=== PATIENT | female | born 1965 | race Caucasian/White ===

== ENCOUNTER 2018-09-29 16:03 | Emergency (ER) | payer OTHER ==
--- NOTE | 2018-09-29 17:30 | UC ---
Lower Extremity/Ankle HPI - HPI Summary HPI Summary: 53-year-old female presents with complaints of right foot pain. States she has had some intermittent pain of both feet since May 2018 however over the last 3-4 days she's had persistent pain in the right forefoot. Describes pain as a mild a ache that worsens with weightbearing and ambulation. Has taken ibuprofen with improvement in the pain. Denies injury, erythema, ecchymosis, edema, numbness, or tingling. 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 Pneumothorax ~ 1989. APPENDIX 09/01/13. lumpectomy, left mastectomy 2016 - Family History Known Family History: Positive: Non-Contributory - Social History Occupation: Employed Full-time Lives: With Family Alcohol Use: None Substance Use Type: None Smoking Status (MU): Heavy Every Day Tobacco Smoker Type: Cigarettes Amount Used/How Often: 1 1/2 ppd Length of Time of Smoking/Using Tobacco: 32 years Have You Smoked in the Last Year: Yes Household Exposure Type: Cigarettes - Immunization History Most Recent Influenza Vaccination: unknown Most Recent Tetanus Shot: 2011 Most Recent Pneumonia Vaccination: never Review of Systems All Other Systems Reviewed And Are Negative: Yes Physical Exam - Summary Physical Exam Summary: GENERAL APPEARANCE: Well developed, well nourished, alert and cooperative, and appears to be in no acute distress. CARDIAC: Normal S1 and S2. No S3, S4 or murmurs. Rhythm is regular. There is no peripheral edema, cyanosis or pallor. Extremities are warm and well perfused. Capillary refill is less than 2 seconds. Peripheral pulses intact. LUNGS: Clear to auscultation without rales, rhonchi, wheezing or diminished breath sounds. ABDOMEN: Positive bowel sounds. Soft, nondistended, nontender. No guarding or rebound. No masses or hepatosplenomegally. MUSKULOSKELETAL: ROM intact to all extremities. No joint erythema or tenderness. Normal muscular development. Normal gait. EXTREMITIES: Tenderness of the right mid forefoot without erythema, ecchymosis, or gross deformity. Circulation and sensation intact. SKIN: Skin normal color, texture and turgor with no lesions or eruptions. Triage Information Reviewed: Yes Vital Signs: Initial Vital Signs Temp 97.6 F 09/29/18 16:11 Pulse 75 09/29/18 16:11 Resp 16 09/29/18 16:11 BP 156/87 09/29/18 16:11 Pulse Ox 100 09/29/18 16:11 Vital Signs Reviewed: Yes Diagnostics - Radiology No standard instances Radiology Interpretation Completed By: Radiologist Summary of Radiographic Findings: Order Information: FOOT RIGHT 3+ VWS. Accession Number: [id number]. CPT: 14388. Indication: Second through fourth dorsal RIGHT foot pain. Soft tissue swelling. No. preceding injury. Comparison : No relevant prior exams available [place] [facility] [place]. Technique: AP, lateral, and oblique views RIGHT foot. REPORT AND IMPRESSION: #. Negative for fracture or stress reaction. Normal articular alignment. #. Mild osteoarthritis at the first metatarsal phalangeal joint. #. Small os tibiale externum and os peroneum accessory ossicles noted. #. Small Achilles tendon insertion and plantar fascia origin bone spurs. #. Mild nonfocal soft tissue swelling. Lower Extremity Course/Dx - Course Course Of Treatment: 53-year-old female presents with complaints of right foot pain. States she has had some intermittent pain of both feet since May 2018 however over the last 3-4 days she's had persistent pain in the right forefoot. Describes pain as a mild a ache that worsens with weightbearing and ambulation. Has taken ibuprofen with improvement in the pain. Denies injury, erythema, ecchymosis, edema, numbness, or tingling. Afebrile. Vital signs stable. Exam reveals an adult female in no acute distress with tenderness over the mid forefoot without erythema, ecchymosis, or gross deformity. Circulation and sensation intact. Remainder of exam unremarkable. X-ray of the right foot is negative for acute fracture or dislocation. Suspect pain is from a tendinitis versus foot sprain of unknown cause. Patient was placed in a postop shoe and recommend conservative treatment with NSAIDs and RICE. Patient is to follow-up with her primary care provider in 7 days if symptoms persist. Anticipatory guidance and warning symptoms were reviewed with the patient. Verbalizes understanding the plan of care. - Differential Dx/Diagnosis Differential Diagnosis/HQI/PQRI: Arthritis, Contusion, Gout, Sprain, Tendonitis , Other - plantar fascitis Provider Diagnosis: Metatarsalgia of right foot Discharge - Sign-Out/Discharge Documenting (check all that apply): Patient Departure All imaging exams completed and their final reports reviewed: Yes - Discharge Plan Condition: Stable Disposition: HOME Prescriptions: Naproxen [Naproxen 500 mg tab] 500 mg PO Q12HR #30 tablet Patient Education Materials: Metatarsalgia (DC) Referrals: Andrew Hernández MD [Primary Care Provider] - 7 Days (If no improvement in symptoms.) Additional Instructions: The x-ray of your foot performed in the clinic today showed no evidence of a fracture or dislocation. I suspect that your pain is likely from the soft tissues (tendons and ligaments) of the foot. Wear the post-op shoe provided to you in the clinic today until you are pain- free. Rest the foot as much as possible. You may continue to walk and bear weight as tolerated. Apply ice to the foot for 15-20 minutes at least 4 times a day to help with pain. Keep the foot elevated while sitting to reduce any inflammation. Take naproxen 1 tab every 12 hours with food for next 5-7 days then may take every 12 hours as needed for pain. Follow up with your primary care provider in 7 days if no improvement in symptoms. Seek immediate medical attention in the emergency room if you have severe pain that is not managed with pain medication, you are unable to walk or bear weight on the foot, you develop numbness or tingling, or have any worsening of symptoms. - Billing Disposition and Condition Condition: STABLE Disposition: Home
[2018-09-29 18:21] VITALS: BP 145/85
== END 2018-09-29 18:18 | disposition home or self-care (01) ==
LOC: UCEAST 16:03
DX: M77.41 Metatarsalgia, right foot (principal); F17.210 Nicotine dependence, cigarettes, uncomplicated
CPT/HCPCS: 99213; G0463